=== PATIENT | male | born 1965 | race Caucasian/White ===

== ENCOUNTER 2020-08-16 09:03 | Outpatient (CLI) | payer OTHER, SELFPAY ==
--- NOTE | 2020-08-16 09:30 | US_ITS ---
WS: [id number] ULTRASOUND ABDOMEN LIMITED CLINICAL INFORMATION: R10.811 - Right upper quadrant abdominal tenderness COMPARISON: None. FINDINGS: Technically difficult examination. Liver Size: Normal. Craniocaudal length: 15.2 cm. Echogenicity: Dense consistent with fatty infiltration. Surface nodularity: None. Mass (size and location): None. Bile ducts Intrahepatic ducts: Normal. Common bile duct diameter: 0.6 cm. Gallbladder Normal. Gallstones: None. Gallbladder sludge: None. Gallbladder wall thickening: None. Pericholecystic fluid: None. Sonographic Azevedo sign: Absent. Pancreas Normal as visualized. Right kidney: Normal. Hydronephrosis: None. Size: 10.4 cm x 5.3 cm x 4.8 cm. Abdominal aorta and IVC Visualized portions are normal. Ascites: None. US/US gall bladder 02509 IMPRESSION: 1. Diffuse fatty infiltration of the liver. 2. Gallbladder is normal. 3. No hydronephrosis in right kidney.
== END 2020-08-16 09:04 | disposition home or self-care (01) ==
PROVIDERS: PCP Nurse Practitioner Family; Visit Provider Nurse Practitioner Family
DX: R10.811 Right upper quadrant abdominal tenderness (principal); K76.0 Fatty (change of) liver, not elsewhere classified
CPT/HCPCS: 76705; 80053; 85025; G0103

== ENCOUNTER → 2020-09-04 16:21 | Outpatient (BNVA) | payer OTHER, SELFPAY | PROVIDERS: PCP Nurse Practitioner Family; Referring Provider Nurse Practitioner Family; Visit Provider Internal Medicine | DX: Z20.822 Contact with and (suspected) exposure to COVID-19 (principal); R10.11 Right upper quadrant pain; Z12.11 Encounter for screening for malignant neoplasm of colon; Z01.812 Encounter for preprocedural laboratory examination; K76.0 Fatty (change of) liver, not elsewhere classified | CPT/HCPCS: 87635 ==

== ENCOUNTER 2020-09-07 07:53 | Day surgery (SDC) | payer OTHER, SELFPAY ==
[2020-09-05 13:28] VITALS: BMI 34.2
[2020-09-07 08:22] VITALS: BP 142/97; PULSE 75; RESP 18; TEMP 36.1; O2SAT 98
[2020-09-07] MEDS: sodium chloride 0.9% 1,000 ML 30 ML IV (08:35)
--- NOTE | 2020-09-07 08:39 | ANES.PREANE2 ---
Pre-Anesthetic Assessment Pre-Anesthetic Assessment: Height/Weight: Height 1.83 m Weight 114.305 kg Temp Pulse Resp BP Pulse Ox 97 F L 75 18 142/97 98 09/07/20 08:22 09/07/20 08:22 09/07/20 08:22 09/07/20 08:22 09/07/20 08:22 Preop Diagnosis: abdominal pain Proposed Procedure: Operation Date: 09/07/20 09:00 Proposed Procedures p EGD/colon 97853 [id number] R10.11 Z12.11(Not Applicable) - Tigre Cook MD s Colonoscopy(Not Applicable) - Tigre Cook MD Familial anesthetic complications: None Was Beta Brie taken within 24 hours: N/A Last intake: Intake Last Liquid Date 09/06/20 Last Liquid Time 23:00 Last Solid Date 09/06/20 Last Solid Time 09:00 Social: Social History: Tobacco and No alcohol Exam: Pre-Anes Outpt Exam: alert, oriented x 3, clear to auscultation bilaterally and regular rate & rhythm Airway: Cervical ROM: WNL MP: 3 Dentition: Full CV/HEM: CV/HEM: HTN Hepatic: Comments: fatty liver Anesthetic Plan: ASA status: 2 Anesthesia: MAC Risk of > 500 ml blood loss (7ml/kg in children): No Meds/Allergies Current Medications: Current Medications Generic Name Dose Route Start Last Admin Trade Name Freq PRN Reason Stop Dose Admin Sodium Chloride 1,000 mls @ 30 ml s/hr 09/07/20 08:15 09/07/20 08:35 Sodium Chloride 0.9% IV 30 mls/hr .Q24H STER[place]ING Administration PFSH Anesthesia PFSH: Medical History (Updated 09/04/20 @ 15:37 by Tigre Cook MD) HTN (hypertension) Family History Father CAD (coronary artery disease) Social History (Updated 09/04/20 @ 14:44 by LISA Alegria) Smoking and tobacco status: current every day smoker Alcohol intake: former Marital status: Number of children: 2 service: No History of recent travel: No Current gender identity: Male Data Anesthesia Cardiac Studies: No Data to Display
--- NOTE | 2020-09-07 08:46 | W.PM.OPSUD ---
Surgery/Procedure H&P Update DATE OF PROCEDURE: September 07, 2020 DATE H&P PERFORMED: 09/04/20 PREOP DIAGNOSIS: abdominal pain PLANNED PROCEDURE: Operation Date: 09/07/20 09:00 Proposed Procedures p EGD/colon 01428 [id number] R10.11 Z12.11(Not Applicable) - Tigre Cook MD s Colonoscopy(Not Applicable) - Tigre Cook MD
[2020-09-07 09:28] VITALS: BP 115/78; PULSE 90; RESP 16; TEMP 36.2; O2SAT 96
[2020-09-07 09:42] VITALS: BP 119/97; PULSE 72; RESP 18; TEMP 36.2; O2SAT 97
--- NOTE | 2020-09-07 15:28 | ANE.PACU2 ---
Inpatient post-anesthesia follow up: Airway intact: Yes Vital signs: Temperature 97.1 F Pulse Rate 72 Respiratory Rate 18 Blood Pressure 119/97 Pulse Oximetry 97 Oxygen Delivery Me thod Room Air Oxygen Flow Rate Fraction of Inspir ed Oxygen Hydration adequate: Yes Nausea and vomiting: No Pain level: 1 Mental status: Baseline
[2020-09-10 14:15] LABS: H. Pylori / CLO Test Negative
== END 2020-09-07 09:50 | disposition home or self-care (01) ==
PROVIDERS: PCP Nurse Practitioner Family; Visit Provider Internal Medicine
PROC: 0DJD8ZZ Inspection of Lower Intestinal Tract, Via Natural or Artificial Opening Endoscopic (ICD-10-PCS; CPT 45378; 2020-09-07 09:00)
PROC: 0DJ08ZZ Inspection of Upper Intestinal Tract, Via Natural or Artificial Opening Endoscopic (ICD-10-PCS; CPT 43235; 2020-09-07 09:00)
DX: Z12.11 Encounter for screening for malignant neoplasm of colon (principal); R10.11 Right upper quadrant pain; K52.9 Noninfective gastroenteritis and colitis, unspecified; K57.30 Diverticulosis of large intestine without perforation or abscess without bleeding; D12.4 Benign neoplasm of descending colon; K29.71 Gastritis, unspecified, with bleeding; K25.9 Gastric ulcer, unspecified as acute or chronic, without hemorrhage or perforation; K76.0 Fatty (change of) liver, not elsewhere classified; I10 Essential (primary) hypertension; Z82.49 Family history of ischemic heart disease and other diseases of the circulatory system; F17.210 Nicotine dependence, cigarettes, uncomplicated
CPT/HCPCS: 12345; 43239; 45380; 45385; 87077; 88305; J2704; J7030

== ENCOUNTER → 2021-03-12 08:16 | Outpatient (BNVA) | payer OTHER, SELFPAY | PROVIDERS: PCP Nurse Practitioner Family; Visit Provider Nurse Practitioner Family | DX: E78.5 Hyperlipidemia, unspecified (principal); R53.83 Other fatigue; I10 Essential (primary) hypertension | CPT/HCPCS: 80053; 80061; 85025 ==

== ENCOUNTER 2021-03-25 08:50 | Outpatient (CLI) | payer OTHER, SELFPAY ==
--- NOTE | 2021-03-25 08:00 | USCV_ITS ---
Abelardo Azevedo Age: 55 Gender: M : 1965 Exam Date: 03/25/2021 09:29 Ordering Phys: Aliya Bowser Technologist: Dee Berry [place] [facility] [place]: CVA LT SIDE. RESOLVED Risk Factors: Unknown Previous Vascular Surgery: None Right Brachial BP: / Left Brachial BP: / Right Left Velocity (cm/s) Spectral Plaque Velocity (cm/s) Spectral Plaque Syst/Diast Broadening Syst/Diast Broadening 87.10/ 23.20 Prox CCA 72.60 / 20.50 76.10/ 20.90 Mid CCA 82.90 / 22.20 77.20/ 22.10 Distal CCA 72.60 / 19.70 73.90/ 22.10 Prox ICA 79.20 / 29.50 Hetro 71.70/ 22.10 Mid ICA 71.00 / 24.90 77.20/ 29.80 Distal ICA 66.30 / 22.50 99.20 ECA 116.50 0.89 ICA/CCA 0.96 Antegrade Vertebral Antegrade 30.20/ 9.90 cm/s 23.70/ 11.80 cm/s Tri Subclavian Tri 106.8 59.20 0 CONCLUSIONS Right ICA stenosis <50%. Mild atheromatous plaque right carotid bulb/ICA. Left ICA stenosis <50%. Mild atheromatous plaque left carotid bulb/ICA. Normal antegrade Doppler flow noted in the right vertebral artery. Normal antegrade Doppler flow noted in the left vertebral artery. Pito Helm MD (Electronically Signed) Final Date: 25 March 2021 17:20 S
--- NOTE | 2021-03-25 08:54 | CT_ITS ---
WS: [id number] CT HEAD TECHNIQUE: Noncontrast CT of the head obtained from the skullbase to the vertex. CLINICAL INFORMATION: R20.0 - Anesthesia of skin COMPARISON: CT 5 DLP: 995.[address] scans at [facility] use at least one of these dose optimization techniques: automat ed exposure control; mA and/or kV adjustment per patient size (includes targeted exams where dose is matched to clinical indication); or iterative reconstruction. FINDINGS: No evidence of intracranial hemorrhage or mass effect. Ventricular system and basal cisterns are lee nt. Mild small vessel changes with mild parenchymal volume loss. No extra-axial fluid collections. No evidence of mass or mass effect. Normal reis-white differentiation. Paranasal sinuses and mastoid air cells are well aerated. .Normal visualized soft tissues. CT/CT head wo con* [id number] IMPRESSION: 1. No evidence of intracranial hemorrhage or mass effect. 2. Mild small vessel changes. Mild parenchymal volume loss. 3. No acute intracranial findings. 4. No significant changes since 2019.
== END 2021-03-25 08:51 | disposition home or self-care (01) ==
PROVIDERS: PCP Nurse Practitioner Family; Visit Provider Nurse Practitioner Family
DX: R20.0 Anesthesia of skin (principal); R20.2 Paresthesia of skin; I10 Essential (primary) hypertension; I65.23 Occlusion and stenosis of bilateral carotid arteries
CPT/HCPCS: 70450; 93880

== ENCOUNTER → 2022-01-24 08:14 | Outpatient (BNVA) | payer OTHER, SELFPAY | PROVIDERS: PCP Nurse Practitioner Family; Visit Provider Nurse Practitioner Family | DX: I10 Essential (primary) hypertension (principal) | CPT/HCPCS: 80053; 80061 ==

== ENCOUNTER → 2022-09-29 15:46 | Outpatient (BNVA) | payer OTHER, SELFPAY | PROVIDERS: PCP Nurse Practitioner Family; Visit Provider Nurse Practitioner Family | DX: R60.9 Edema, unspecified (principal); E78.5 Hyperlipidemia, unspecified; R20.2 Paresthesia of skin; Z79.899 Other long term (current) drug therapy | CPT/HCPCS: 80053; 80061; 82607; 83735; 83880 ==

== ENCOUNTER 2022-12-10 07:48 | Outpatient (CLI) | payer OTHER, SELFPAY ==
--- NOTE | 2022-12-10 08:00 | USCV_ITS ---
Abelardo Azevedo Age: 57 Gender: M : 1965 Exam Date: 12/10/2022 08:01 Ordering Phys: Aliya Bowser Technologist: HERVE [place] [facility] [place]: Lt leg swelling HISTORY: Lower extremity swelling. PROCEDURES: Venous duplex imaging was performed in only the left lower extremity. The following venous structures were evaluated: common femoral vein, profunda vein, proximal portion of the greater saphenous vein, superficial femoral vein, and the popliteal vein. In addition, the posterior tibial and peroneal trunk were evaluated. Serial compression, augmentation maneuvers, and spectral Doppler flow evaluation were performed. FINDINGS: No evidence of DVT seen in any vessel visualized at this time. CONCLUSIONS No evidence of left lower extremity DVT. Pito Helm MD (Electronically Signed) Final Date: 10 Dec 2022 13:04 S
== END 2022-12-10 07:49 | disposition home or self-care (01) ==
PROVIDERS: PCP Nurse Practitioner Family; Visit Provider Nurse Practitioner Family
DX: R22.42 Localized swelling, mass and lump, left lower limb (principal)
CPT/HCPCS: 93971

== ENCOUNTER 2022-12-24 15:39 | Observation (INO) | payer OTHER, SELFPAY ==
[2022-12-24] VITALS (9 sets, daily range): BP systolic 98–198; BP diastolic 65–126; PULSE 66–81; RESP 18–24; O2SAT 93–98
--- NOTE | 2022-12-24 16:24 | W.ED.CHESTPA ---
HPI - Chest Pain General: Chief Complaint: Chest Pain Stated Complaint: CP Time Seen by Provider: 12/24/22 16:24 History of Present Illness: Mr. Azevedo is a 57-year-old gentleman with history of smoking, hypertension, obesity presenting to the emergency department for increasing frequency and intensity chest pain. He notes symptoms have been worsening over the past few months. Has left anterior chest pain associated with radiation to the neck, arm, shortness of breath, nausea intermittently. Denies specific known provoking events. No other specific changes in health, exacerbating, or alleviating factors identified. Onset (ago): week(s) Timing of current episode: episodic Prior episodes: Yes Pain location: substernal Pain radiation: left arm and neck Severity: moderate Quality: aching and heaviness Relieving factors: nothing Exacerbating factors: exertion Review of Systems General: Reports: 10 or more systems reviewed and unremarkable except in HPI and below PFSH ED PFSH: Medical History History of colon polyps HTN (hypertension) Family History Father CAD (coronary artery disease) Social History Smoking and tobacco status: current every day smoker Quit status (tobacco): considering quitting Alcohol intake: former Marital status: Number of children: 2 service: No Current gender identity: Male Physical Exam Const: COMMON NORMALS: alert GENERAL APPEARANCE: cooperative and well developed HENMT: COMMON NORMALS: normocephalic and atraumatic HEAD & SCALP: normocephalic and atraumatic Eye: COMMON NORMALS: conjunctivae normal CONJUNCTIVA: Yes conjunctivae normal SCLERA: sclerae normal Neck/C-Spine: COMMON NORMALS: supple GENERAL: Yes trachea midline Resp: COMMON NORMALS: clear to auscultation bilaterally EFFORT & INSPECTION: Yes able to speak in complete sentences AUSCULTATION: clear to auscultation bilaterally Cardio: COMMON NORMALS: regular rate and regular rhythm RATE: regular rate RHYTHM: regular rhythm GI: COMMON NORMALS: Soft to palpation PALPATION: Yes Soft to palpation and No Tenderness to palpation present (GI) Extremity: GENERAL: Yes normal exam except as noted and No edema Neuro: COMMON NORMALS: moves all extremities SENSORIUM/ORIENTATION: Yes alert and No Orientation impaired Psych: COMMON NORMALS: mental status grossly normal and Normal thought process present THOUGHT PROCESS: Normal thought process present Course Vital Signs: Vital signs: Vital Signs Pulse Rate 73 12/25/22 13:09 Respiratory Rate 16 12/25/22 13:09 Blood Pressure 143/79 12/25/22 13:09 Pulse Oximetry 97 12/25/22 13:09 Oxygen Delivery Me thod Room Air 12/25/22 08:25 MDM - Chest Pain Medical Decision Making 57-year-old gentleman presenting with worsening chest pain. Exam as above. EKG demonstrates sinus rhythm with an ossific ST segment abnormalities, no STEMI. Labs without significant hematologic or metabolic abnormalities to explain symptoms. Negative range delta troponin. Chest x-ray with no lobar consolidation or pneumothorax. During ED course patient treated with aspirin. Patient is not low risk by heart score and after discussion will be admitted for further cardiac testing. The results of ED evaluation were discussed with the patient including plan for admission due to requirement for level of care not available if discharged to prevent significant worsening/deterioration. Patient agreeable with plan. Discussed with hospitalist service who was agreeable to admit patient. Medical Records I reviewed the patient's medical records. Lab Data I reviewed the patient's lab results. 12/25/22 03:55 12/25/22 03:55 Radiology Impressions Chest X-Ray 12/24/22 16:25 IMPRESSION: No acute findings. Laboratory Results WBC 6.3 10^3/uL (4.0-10.0) 12/24/22 17:10 RBC 5.72 10^6/uL (4.1-5.3) H 12/24/22 17:10 Hgb 17.1 g/dL (11.7-16.6) H 12/24/22 17:10 Hct 50.0 % (42.0-52.0) 12/24/22 17:10 MCV 87.4 fl (80-94) 12/24/22 17:10 MCH 29.9 pg (28.0-34.0) 12/24/22 17:10 MCHC 34.2 g/dL (30.0-36.0) 12/24/22 17:10 RDW 12.8 % (12.1-15.1) 12/24/22 17:10 Plt Count 216 10^3/cmm (130-400) 12/24/22 17:10 MPV 8.8 fL (7.4-10.4) 12/24/22 17:10 Neut % (Auto) 43.3 % 12/24/22 17:10 Lymph % (Auto) 42.3 % 12/24/22 17:10 [place] % (Auto) 10.9 % 12/24/22 17:10 Eos % (Auto) 1.9 % 12/24/22 17:10 Baso % (Auto) 1.1 % 12/24/22 17:10 Neut # (Auto) 2.75 10^3/uL (1.8-7.7) 12/24/22 17:10 Lymph # (Auto) 2.7 10^3/uL (0.8-4.8) 12/24/22 17:10 [place] # (Auto) 0.7 10^3/uL (0.2-0.9) 12/24/22 17:10 Eos # (Auto) 0.1 10^3/uL (0.0-0.8) 12/24/22 17:10 Baso # (Auto) 0.1 10^3/uL (0.0-0.1) 12/24/22 17:10 Nucleated RBC % (auto) 0 % 12/24/22 17:10 Nucleated RBCs # 0.0 /100WBC 12/24/22 17:10 PT 13.30 SECONDS (12.1-14.9) 12/24/22 17:10 INR 0.99 (0.8-1.2) 12/24/22 17:10 APTT 28.0 SECONDS (23.9-36.7) 12/24/22 17:10 Sodium 134 mmol/L (136-145) L 12/24/22 17:10 Potassium 4.4 mmol/L (3.5-5.1) 12/24/22 17:10 Chloride 101 mmol/L (98-107) 12/24/22 17:10 Carbon Dioxide 25 mmol/L (22-29) 12/24/22 17:10 Anion Gap 12.4 (5-19) 12/24/22 17:10 BUN 15 mg/dL (6-20) 12/24/22 17:10 Creatinine 1.0 mg/dL (0.7-1.2) 12/24/22 17:10 GFR Calculation 76.5 mL/min (90-130) L 12/24/22 17:10 Glucose 84 mg/dL (65-115) 12/24/22 17:10 Estimat Average Glucose 111 12/24/22 17:10 Hemoglobin A1c 5.5 % (4.0-6.0) 12/24/22 17:10 Calculated Osmolality 278 mOsm/kg (285-295) L 12/24/22 17:10 Calcium 9.0 mg/dL (8.5-10.5) 12/24/22 17:10 Total Bilirubin 0.3 mg/dL (0.15-1.2) 12/24/22 17:10 AST 22 U/L (0-40) 12/24/22 17:10 ALT 26 U/L (0-41) 12/24/22 17:10 Alkaline Phosphatase 60 U/L (40-130) 12/24/22 17:10 Troponin T Baseline 9 ng/L (0-15) 12/24/22 17:10 Troponin T 120 Minute 7.80 ng/L (0-15) 12/24/22 19:05 Delta Troponin T -1.2 ABS# (0-10) L 12/24/22 19:05 NT-Pro-B Natriuret Pep 36 pg/mL (0-125) 12/24/22 17:10 Total Protein 6.7 g/dL (6.6-8.7) 12/24/22 17:10 Albumin 4.1 g/dL (3.5-5.2) 12/24/22 17:10 Globulin 2.6 g/dL (1.3-4.6) 12/24/22 17:10 Triglycerides 210 mg/dL (0-150) H 12/24/22 17:10 Cholesterol 162 mg/dL (0-200) 12/24/22 17:10 LDL Cholesterol, Calc 88 mg/dL (50-129) 12/24/22 17:10 HDL Cholesterol 32 mg/dL (60-100) L 12/24/22 17:10 LDL/HDL Ratio 2.75 RATIO (0.00-3.22) 12/24/22 17:10 Cholesterol/HDL Ratio 5.06 mg/dL (1.0-5.00) H 12/24/22 17:10 TSH 1.93 uIU/mL (0.27-4.20) 12/24/22 17:10 Discharge Plan Discharge Patient Disposition: Placed in Observation Admit Provider: Vero Ruiz Clinical Impression: Chest pain Discharge Diet: Cardiac Discharge Activity: Resume usual activity Coding Level of Care Code ED Plaster Machine Operator for Urvashi Haynes
--- NOTE | 2022-12-24 16:25 | ECG_ITS ---
[facility] Test Date: 2022-12-24 Pat Name: Abelardo Azevedo Department: Room: Gender: Male Promotion Producer: : 1965 Requested By: Nahid Garza Order Number: [id number] Barr MD: Neto Mendieta M.D. Measurements Intervals [place] Rate: 66 P: 52 NM: 164 QRS: -29 QRSD: 97 T: 40 QT: 387 QTc: 406 Interpretive Statements SINUS RHYTHM BORDERLINE LEFT AXIS DEVIATION [QRS AXIS < -20] Compared to ECG 12/06/2018 14:10:59 Sinus bradycardia no longer present Electronically Signed On 12-24-2022 22:23:33 CDT by Neto Mendieta M.D. [id number] f
--- NOTE | 2022-12-24 16:25 | XRR_ITS ---
PROCEDURE INFORMATION: Exam: XR Chest Exam date and time: 12/24/2022 4:30 PM Age: 57 years old Clinical indication: Pain; Angina pectoris; Patient HX: Cp, arm numbness TECHNIQUE: Imaging protocol: Radiologic exam of the chest. Views: 1 view. COMPARISON: MR cervical spin wo con* [id number] 03/02/2019 3:25 PM FINDINGS: Lungs: Unremarkable. No consolidation. Pleural spaces: Unremarkable. No pleural effusion. No pneumothorax. Heart/Mediastinum: Unremarkable. No cardiomegaly. Bones/joints: Unremarkable. XR/XR chest 1V portable [id number] IMPRESSION: No acute findings.
[2022-12-24] MEDS: aspirin 81 mg Chew Tablet 324 MG PO (17:10)
[2022-12-24 17:23] LABS: Basophils # 0.1 10^3/uL (0.0-0.1); Basophils % 1.1 %; Eosinophils # 0.1 10^3/uL (0.0-0.8); Eosinophils % 1.9 %; Hemoglobin 17.1 g/dL (11.7-16.6); Lymphocytes # 2.7 10^3/uL (0.8-4.8); Lymphocytes % 42.3 %; Mean Corpuscular HGB Conc 34.2 g/dL (30.0-36.0); Mean Corpuscular Hemoglobin 29.9 pg (28.0-34.0); Mean Corpuscular Volume 87.4 fl (80-94); Mean Platelet Volume 8.8 fL (7.4-10.4); Monocytes # 0.7 10^3/uL (0.2-0.9); Monocytes % 10.9 %; Neutrophils # 2.75 10^3/uL (1.8-7.7); Neutrophils % 43.3 %; Nucleated Red Blood Cells % 0 %; Platelet Count 216 10^3/cmm (130-400); Red Blood Count 5.72 10^6/uL (4.1-5.3); Red Cell Distribution Width 12.8 % (12.1-15.1); White Blood Count 6.3 10^3/uL (4.0-10.0)
[2022-12-24 17:36] LABS: INR 0.99 (0.8-1.2)
[2022-12-24 17:52] LABS: Troponin(5th) Baseline 9 ng/L (0-15)
[2022-12-24 18:02] LABS: Alanine Aminotransferase 26 U/L (0-41); Albumin Level 4.1 g/dL (3.5-5.2); Alkaline Phosphatase 60 U/L (40-130); Anion Gap 12.4 (5-19); Aspartate Amino Transferase 22 U/L (0-40); Blood Urea Nitrogen 15 mg/dL (6-20); Carbon Dioxide 25 mmol/L (22-29); Chloride 101 mmol/L (98-107); Globulin 2.6 g/dL (1.3-4.6); Glomerular Filtration Rate 76.5 mL/min (90-130); Glucose 84 mg/dL (65-115); NT Pro B Type Natriuretic Pept 36 pg/mL (0-125); Osmolality Calculated 278 mOsm/kg (285-295); Potassium 4.4 mmol/L (3.5-5.1); Sodium 134 mmol/L (136-145); Total Bilirubin 0.3 mg/dL (0.15-1.2); Total Protein 6.7 g/dL (6.6-8.7)
--- NOTE | 2022-12-24 18:25 | ECG_ITS ---
[facility] Test Date: 2022-12-24 Pat Name: Abelardo Azevedo Department: Room: Gender: Male Career Placement Specialist: : 1965 Requested By: Nahid Garza Order Number: [id number] Cortney MD: Neto Mendieta M.D. Measurements Intervals [place] Rate: 65 P: 66 [place]: 179 QRS: -28 QRSD: 85 T: 33 QT: 385 QTc: 403 Interpretive Statements SINUS RHYTHM INDETERMINATE AXIS Compared to ECG 12/24/2022 16:08:40 Indeterminate axis now present Electronically Signed On 12-24-2022 22:56:07 CDT by Neto Mendieta M.D. [email or web address]/[id number]
[2022-12-24 19:47] LABS: Troponin 5 2HR Delta -1.2 ABS# (0-10)
--- NOTE | 2022-12-24 19:48 | PM.HP ---
Providers/Chief Complaint Primary Care Provider: CARMELO Hewitt Chief Complaint: CP History of Present Illness Abelardo Azevedo is a 57 year old male with past medical history of hypertension, obesity, active smoker 2 pack/day but now has cut down to 1 pack/day presented to the hospital with complaint of chest pain that has been going on for several weeks however now has increased in intensity and frequency. He states he has a history of coronary artery disease status post CABG in his father. He says every time he gets chest pain it is substernal radiating to the left arm causing nausea and some diaphoresis as well. It is substernal and achy. He states at this point the chest pain has resolved however his arm continues to hurt a little bit. He was given aspirin on arrival to ER. Only past medical history of hypertension and takes lisinopril 40 daily. EKG did not show any gross ischemic changes at this time. He has never had chest pain like this before. At this time denies nausea vomiting abdominal pain chest pain, diarrhea, constipation. States he is otherwise healthy. Did complain of some mild left lower extremity swelling. Medications/Allergies Home Medications Medication Instructions Recorded Confirmed Last Taken Type pantoprazole 40 mg tablet,delayed 40 mg PO DAILY #90 tabs 03/25/22 09/29/22 Unknown Rx release lisinopril 40 mg tablet See Rx Instructions .Route 08/14/22 12/08/22 Unknown Rx .COMPLEX #90 tabs Allergies Allergy/AdvReac Type Severity Reaction Status Date / Time No Known Allergies Allergy Verified 12/08/22 16:16 PFSH Acute PFSH: Medical History History of colon polyps HTN (hypertension) Family History Father CAD (coronary artery disease) Social History Smoking and tobacco status: current every day smoker Alcohol intake: former Marital status: Number of children: 2 service: No Current gender identity: Male Vitals/I&O/Wt Last Vital Signs Pulse 81 12/24/22 19:35 Resp 24 H 12/24/22 19:35 BP 190/126 12/24/22 19:35 Pulse Ox 93 12/24/22 19:35 O2 Del Method Room Air 12/24/22 16:14 Physical Exam Narrative: General: Alert oriented x3, patient seen sitting up in bed appearing comfortable at this time. HEENT: Normocephalic, atraumatic, EOMI, breathing normally. Cardio: Regular rate rhythm, normal S1-S2 Respiratory: Good bilateral air entry, no wheezes no rhonchi appreciated GI: Abdomen soft, nontender, nondistended, bowel sounds + Extremities: Trace edema bilateral lower extremities, left slightly greater than right. Data 12/24/22 17:10 12/24/22 17:10 A&P Assessment and plan (1) Chest pain: (2) PUD (peptic ulcer disease): (3) HTN (hypertension): Plan #Chest pain, sounds typical in nature #Hypertension #GERD? ? Patient states he no longer takes her Protonix and is only on lisinopril daily. ? Check lipid profile, hemoglobin A1c, TSH ? Check troponin series. Baseline troponin negative, 2-hour troponin negative. Delta troponin negative. Awaiting 6-hour troponin ? Serial EKGs ? Explained to the patient symptoms of anginal equivalent and asked him to report symptoms to nurse if any of those happen overnight. ? N.p.o. at midnight today for tentative stress test in a.m. ? Check cardiac echo ? Patient is an active smoker. He is to be offered Nicorette gum, resources to help quit smoking ? He does carry a strong family history with CABG in father. ? Uses [facility] in [place] from pharmacy. ? Does not have a primary care doctor and will need to be set up with one at discharge. ? We will start patient on aspirin 81 daily. Heart rate 55-65. We will hold off on adding a beta-kar at this time. ? Check venous Dopplers bilateral lower extremities ? Consider cardiology consult Full code SCDs, heparin SQ twice daily Attestations Medical Necessity Statement*: Observation admission for stress test in a.m. Coding Level of Care Code G0425 (30 min) Encounter Time (min): 45 Patient seen via Telehealth in the acute care setting (hospital or ED location) by agreement and consent of patient or patient applications sales representative. Telehealth technology used during the visit includes video and audio. This patient encounter is appropriate and reasonable under the circumstances given the patient?s particular presentation at this time. The patient has been advised of the potential risks and limitations of this mode of treatment (including but not limited to the absence of in-person examination at this time) and has agreed to be treated by an off-site physician for this visit. If deemed clinically necessary from this telehealth visit, or if condition or consent for telehealth visit changes, an in-person visit will be arranged. For this encounter, total time for the origination of telehealth care on this date is as shown. Diagnoses Chest pain R07.9 PUD (peptic ulcer disease) K27.9 HTN (hypertension) I10
--- NOTE | 2022-12-24 19:51 | USCV_ITS ---
Abelardo Azevedo Age: 57 Gender: M : 1965 Exam Date: 12/24/2022 21:27 Ordering Phys: Vero Ruiz MD Technologist: CHELSEA [place] [facility] [place] Indication: chest pain, tobaccoism, No history of cardiac intervention per patient. BP: 190 / 126 HR: 63 Rhythm: Sinus Technical Quality: Adequate with OPTISON MEASUREMENTS (Male / Female) Normal Values 2D ECHO LV Diastolic Diameter PLAX 3.9 cm 4.2 - 5.9 / 3.9 - 5.3 cm LV Systolic Diameter PLAX 2.7 cm IVS Diastolic Thickness 1.6 cm 0.6 - 1.0 / 0.6 - 0.9 cm IVS Systolic Thickness 1.9 cm LVPW Diastolic Thickness 1.9 cm 0.6 - 1.0 / 0.6 - 0.9 cm LVPW Systolic Thickness 1.7 cm LVOT Diameter 2.0 cm LV Ejection Fraction 2D Teich 57.0 % LV Ejection Fraction MOD 2C 66.2 % LV Ejection Fraction 2C AL 64.9 % LA Diameter 3.1 cm LA Width 3.5 cm LA Height 5.7 cm RA Width 3.4 cm RA Height 4.8 cm Aorta at Sinotubular Diameter 3.6 cm IVC Diameter 2.3 cm M-MODE Aortic Annulus Diameter 4.0 cm LA Ao Ratio MM 0.8 MV E Point Septal Separation 0.2 cm DOPPLER AV Peak Velocity 130.0 cm/s LVOT Peak Velocity 99.0 cm/s AV Area Cont Eq vti 2.6 cm squared AV Area Cont Eq pk 2.4 cm squared MV Peak Velocity 93.0 cm/s MV Area PHT 2.8 cm squared Mitral E to A Ratio 1.1 MV E' Velocity 54.0 cm/s Mitral E to MV E' Ratio 14.2 Mitral E to LV E' Lateral Ratio 13.9 Mitral E to LV E' Septal Ratio 14.7 TV Peak E Velocity 61.0 cm/s FINDINGS Left Ventricle Normal left ventricular size, systolic function and increased wall thickness, with no regional wall motion abnormalities. Left ventricular ejection fraction is estimated at 70 %. Normal diastolic function. Right Ventricle Normal right ventricular size and systolic function. RVSP could not be calculated due to incomplete tricuspid regurgitation velocity profile. Right Atrium Normal right atrial size. Left Atrium Normal left atrial size. Mitral Valve Structurally normal mitral valve. No mitral valve stenosis. No mitral valve regurgitation. Aortic Valve Probably trileaflet aortic valve. No aortic valve stenosis. No aortic valve regurgitation. Tricuspid Valve Structurally normal tricuspid valve. Trace tricuspid valve regurgitation. Pulmonic Valve Pulmonic valve not well visualized. Pericardium No pericardial effusion. Aorta Normal size aortic root. IVC Normal IVC dimension with >50% respiratory change of the inferior vena cava. CONCLUSIONS 1. Technically difficult study. Optison was used per protocol. 2. Normal left ventricular size, systolic function and increased wall thickness, with no regional wall motion abnormalities. Left ventricular ejection fraction is estimated at 70 %. Normal diastolic function. 3. No prior similar studies to compare. Abbi Lawton MD (Electronically Signed) Final Date: 25 Dec 2022 11:51 S
--- NOTE | 2022-12-24 20:00 | ECG_ITS ---
[facility] Test Date: 2022-12-24 Pat Name: Abelardo Azevedo Department: Room: Gender: Male Assistant Production Editor: : 1965 Requested By: Vero Ruiz Order Number: [id number] Cortney MD: Neto Mendieta M.D. Measurements Intervals [place] Rate: 69 P: 52 [place]: 148 QRS: -25 QRSD: 82 T: 30 QT: 385 QTc: 413 Interpretive Statements SINUS RHYTHM INFERIOR MYOCARDIAL INFARCTION , PROBABLY OLD [40+ ms Q WAVE AND/OR ST/T ABNORMALITY IN II/aVF] Compared to ECG 12/24/2022 18:58:56 Myocardial infarct finding now present Indeterminate axis no longer present Electronically Signed On 12-24-2022 22:55:06 CDT by Neto Mendieta M.D. [id number]
[2022-12-24] MEDS: hyDRALAzine 20 mg/mL INJ 1 mL 10 MG IVP (20:23)
[2022-12-24 20:39] LABS: Chol HDL Ratio 5.06 mg/dL (1.0-5.00); Cholesterol 162 mg/dL (0-200); HDL Cholesterol 32 mg/dL (60-100); LDL Cholesterol Calculated 88 mg/dL (50-129); LDL HDL Ratio 2.75 RATIO (0.00-3.22); Thyroid Stimulating Hormone 1.93 uIU/mL (0.27-4.20); Triglycerides 210 mg/dL (0-150)
[2022-12-24 21:00] LABS: Estmated Average Glucose 111; Hemoglobin A1C 5.5 % (4.0-6.0)
[2022-12-24] MEDS: heparin 5,000 unit/mL INJ 1 mL 5000 UNIT SUBCUT (22:42)
--- NOTE | 2022-12-24 22:59 | ECG_ITS ---
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 Measurements Intervals [place] Rate: 63 P: 69 MI: 173 QRS: -35 QRSD: 89 T: 46 QT: 398 QTc: 409 Interpretive Statements SINUS RHYTHM LEFT AXIS DEVIATION [QRS AXIS < -30] INFERIOR MYOCARDIAL INFARCTION , PROBABLY OLD [40+ ms Q WAVE AND/OR ST/T ABNORMALITY IN II/aVF] Compared to ECG 12/24/2022 20:04:25 Left-axis deviation now present Myocardial infarct finding still present Electronically Signed On 12-25-2022 21:28:57 CDT by Abbi Lawton M.D. [id number]
[2022-12-24 23:25] LABS: Troponin 5 6HR 8.32 ng/L (0-15)
[2022-12-24 23:32] LABS: Troponin 5 6HR Delta -0.68 ng/L (0-12)
[2022-12-25] VITALS (7 sets, daily range): BP systolic 106–149; BP diastolic 66–90; PULSE 60–85; RESP 16–20; O2SAT 97
[2022-12-25 04:06] LABS: Basophils # 0.1 10^3/uL (0.0-0.1); Eosinophils # 0.1 10^3/uL (0.0-0.8); Eosinophils % 1.4 %; Hematocrit 50.2 % (42.0-52.0); Hemoglobin 16.7 g/dL (11.7-16.6); Lymphocytes # 2.6 10^3/uL (0.8-4.8); Lymphocytes % 42.2 %; Mean Corpuscular HGB Conc 33.3 g/dL (30.0-36.0); Mean Corpuscular Hemoglobin 29.2 pg (28.0-34.0); Mean Corpuscular Volume 87.9 fl (80-94); Mean Platelet Volume 8.9 fL (7.4-10.4); Monocytes # 0.8 10^3/uL (0.2-0.9); Monocytes % 12.8 %; Neutrophils # 2.65 10^3/uL (1.8-7.7); Neutrophils % 42.4 %; Nucleated Red Blood Cells % 0 %; Platelet Count 207 10^3/cmm (130-400); Red Blood Count 5.71 10^6/uL (4.1-5.3); Red Cell Distribution Width 12.8 % (12.1-15.1); White Blood Count 6.3 10^3/uL (4.0-10.0)
[2022-12-25 04:23] LABS: Anion Gap 12.8 (5-19); Blood Urea Nitrogen 13 mg/dL (6-20); Calcium 8.7 mg/dL (8.5-10.5); Carbon Dioxide 24 mmol/L (22-29); Chloride 106 mmol/L (98-107); Glomerular Filtration Rate 76.5 mL/min (90-130); Glucose 91 mg/dL (65-115); Osmolality Calculated 286 mOsm/kg (285-295); Potassium 4.8 mmol/L (3.5-5.1); Sodium 138 mmol/L (136-145)
[2022-12-25] MEDS: perflutren protein-a microsphr 0.22 mg/mL SDV 3 mL IV (05:35)
--- NOTE | 2022-12-25 06:24 | ECG_ITS ---
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 Interpretive Statements NAME OF STUDY: LEXISCAN SESTAMIBI STRESS TEST INDICATION: Chest Pain PROCEDURE: At the baseline, the blood pressure was 208/72 mmHg with a heart rate of 88 bpm. The electrocardiogram showed sinus rhythm, axis deviation. possible old inferior infarct. Poor anterior R wave progression. The Lexiscan was infused over a period of 20 seconds. A total of 0.4 milligrams of Lexiscan was infused. The stress phase was continued for a total of 5 minutes. Heart rate at the end of the stress phase was 92 bpm with a blood pressure of 192/70 mm Hg. The EKG at the peak infusion revealed sinus rhythm with no significant ST-T wave changes. Sestamibi was injected 20 seconds after the Lexiscan infusion. Blood pressure at the end of the recovery phase was 105/73 mm Hg with a heart rate of 85 beats per minute. CONCLUSION: 1. No significant EKG changes with the LexiScan infusion. 2. No LexiScan induced chest pain or cardiac arrhythmia. 3. Normal blood pressure and heart rate response. 4. Sestamibi/sestamibi perfusion scan pending; see separate report. Electronically Signed On 12-25-2022 11:18:07 CDT by Abbi Lawton M.D. [id number]
[2022-12-25] MEDS: regadenoson 0.4 Mg/5 ml Syringe IVP (07:13)
[2022-12-25] MEDS: lisinopril 20 mg Tablet 40 MG PO (09:15)
[2022-12-25] MEDS: pantoprazole DR 40 mg Tablet PO (09:18)
[2022-12-25] MEDS: aspirin 81 mg EC Tablet PO (09:18)
[2022-12-25] MEDS: heparin 5,000 unit/mL INJ 1 mL 5000 UNIT SUBCUT (09:19)
--- NOTE | 2022-12-25 11:29 | PM.DCS ---
Discharge Providers Date of Admission: 12/24/22 21:05 Date of Discharge: December 25, 2022 Attending Provider at Admission: Vero Ruiz MD Attending Provider at Discharge: Chun Headley MD Primary Care Provider: CARMELO Hewitt Diagnoses at Discharge Discharge Diagnosis (1) Chest pain: Status: Acute (2) PUD (peptic ulcer disease): Status: Acute (3) HTN (hypertension): Status: Acute Reason for Visit Reason for Visit: CP Hospital Course Hospital Course This is a 47-year-old male with a past medical history of hypertension, who presents to [facility] for chest pain Patient presented to [facility] for chest pain, no significant delta troponin during his hospitalization, EKG no acute ST-T wave changes, no telemetry events, no recurrent chest pain, stress test was low probability. Patient was discharged on aspirin, statin, nitro as needed for chest pain, metoprolol 12.5 twice daily for hypertension, see primary care provider in 1 week for blood pressure check, see cardiology in 2 weeks, if any recurrent chest pain, please go to emergency room. Patient was advised of smoking cessation counseling. Physical Exam Const: COMMON NORMALS: no acute distress and patient oriented x3 Resp: COMMON NORMALS: normal respiratory effort, No retractions, No use of accessory muscles and clear to auscultation bilaterally AUSCULTATION: clear to auscultation bilaterally Cardio: COMMON NORMALS: regular rate, regular rhythm, S1 normal heart sound present and S2 normal heart sound present RATE: regular rate RHYTHM: regular rhythm HEART SOUNDS: S1 normal heart sound present and S2 normal heart sound present GI: COMMON NORMALS: Normal to inspection, nondistended, normoactive bowel sounds present and non-tender Extremity: COMMON NORMALS: no pedal edema Neuro: COMMON NORMALS: patient oriented x3 Psych: COMMON NORMALS: mental status grossly normal Discharge Data Studies Completed and Pending Completed Studies During Hospitalization Category Date Time Status Sestamibi Stress Test Request Routine Exams 12/25/22 06:24 Completed XR chest 1V portable [id number] Stat Exams 12/24/22 16:25 Completed NM janes perf SPECT r/s* [id number] Routine Nuc Med 12/25/22 21:02 Completed Pending at discharge Category Date Time Status Sestamibi Stress Test Request Routine Exams 12/24/22 21:01 Stop Req CV. echo wo/w contrast [id number] Urgent Ultrasound 12/24/22 19:51 Taken Radiology Impressions Chest X-Ray 12/24/22 16:25 IMPRESSION: No acute findings. Laboratory Results WBC 6.3 10^3/uL (4.0-10.0) 12/25/22 03:55 RBC 5.71 10^6/uL (4.1-5.3) H 12/25/22 03:55 Hgb 16.7 g/dL (11.7-16.6) H 12/25/22 03:55 Hct 50.2 % (42.0-52.0) 12/25/22 03:55 MCV 87.9 fl (80-94) 12/25/22 03:55 MCH 29.2 pg (28.0-34.0) 12/25/22 03:55 MCHC 33.3 g/dL (30.0-36.0) 12/25/22 03:55 RDW 12.8 % (12.1-15.1) 12/25/22 03:55 Plt Count 207 10^3/cmm (130-400) 12/25/22 03:55 MPV 8.9 fL (7.4-10.4) 12/25/22 03:55 Neut % (Auto) 42.4 % 12/25/22 03:55 Lymph % (Auto) 42.2 % 12/25/22 03:55 [place] % (Auto) 12.8 % 12/25/22 03:55 Eos % (Auto) 1.4 % 12/25/22 03:55 Baso % (Auto) 1.0 % 12/25/22 03:55 Neut # (Auto) 2.65 10^3/uL (1.8-7.7) 12/25/22 03:55 Lymph # (Auto) 2.6 10^3/uL (0.8-4.8) 12/25/22 03:55 [place] # (Auto) 0.8 10^3/uL (0.2-0.9) 12/25/22 03:55 Eos # (Auto) 0.1 10^3/uL (0.0-0.8) 12/25/22 03:55 Baso # (Auto) 0.1 10^3/uL (0.0-0.1) 12/25/22 03:55 Nucleated RBC % (auto) 0 % 12/25/22 03:55 Nucleated RBCs # 0.0 /100WBC 12/25/22 03:55 PT 13.30 SECONDS (12.1-14.9) 12/24/22 17:10 INR 0.99 (0.8-1.2) 12/24/22 17:10 APTT 28.0 SECONDS (23.9-36.7) 12/24/22 17:10 Sodium 138 mmol/L (136-145) 12/25/22 03:55 Potassium 4.8 mmol/L (3.5-5.1) 12/25/22 03:55 Chloride 106 mmol/L (98-107) 12/25/22 03:55 Carbon Dioxide 24 mmol/L (22-29) 12/25/22 03:55 Anion Gap 12.8 (5-19) 12/25/22 03:55 BUN 13 mg/dL (6-20) 12/25/22 03:55 Creatinine 1.0 mg/dL (0.7-1.2) 12/25/22 03:55 GFR Calculation 76.5 mL/min (90-130) L 12/25/22 03:55 Glucose 91 mg/dL (65-115) 12/25/22 03:55 Estimat Average Glucose 111 12/24/22 17:10 Hemoglobin A1c 5.5 % (4.0-6.0) 12/24/22 17:10 Calculated Osmolality 286 mOsm/kg (285-295) 12/25/22 03:55 Calcium 8.7 mg/dL (8.5-10.5) 12/25/22 03:55 Magnesium 2.0 mg/dL (1.7-2.3) 12/25/22 03:55 Total Bilirubin 0.3 mg/dL (0.15-1.2) 12/24/22 17:10 AST 22 U/L (0-40) 12/24/22 17:10 ALT 26 U/L (0-41) 12/24/22 17:10 Alkaline Phosphatase 60 U/L (40-130) 12/24/22 17:10 Troponin T Baseline 9 ng/L (0-15) 12/24/22 17:10 Troponin T 120 Minute 7.80 ng/L (0-15) 12/24/22 19:05 Delta Troponin T -1.2 ABS# (0-10) L 12/24/22 19:05 Troponin T Hi Sens 6Hr 8.32 ng/L (0-15) 12/24/22 22:57 Troponin T Hi Sens 6Hr Delta -0.68 ng/L (0-12) L 12/24/22 22:57 NT-Pro-B Natriuret Pep 36 pg/mL (0-125) 12/24/22 17:10 Total Protein 6.7 g/dL (6.6-8.7) 12/24/22 17:10 Albumin 4.1 g/dL (3.5-5.2) 12/24/22 17:10 Globulin 2.6 g/dL (1.3-4.6) 12/24/22 17:10 Triglycerides 210 mg/dL (0-150) H 12/24/22 17:10 Cholesterol 162 mg/dL (0-200) 12/24/22 17:10 LDL Cholesterol, Calc 88 mg/dL (50-129) 12/24/22 17:10 HDL Cholesterol 32 mg/dL (60-100) L 12/24/22 17:10 LDL/HDL Ratio 2.75 RATIO (0.00-3.22) 12/24/22 17:10 Cholesterol/HDL Ratio 5.06 mg/dL (1.0-5.00) H 12/24/22 17:10 TSH 1.93 uIU/mL (0.27-4.20) 12/24/22 17:10 Vitals Last Vital Signs Pulse 69 12/25/22 08:25 Resp 16 12/25/22 08:25 BP 145/90 12/25/22 08:00 Pulse Ox 97 12/25/22 08:25 O2 Del Method Room Air 12/25/22 08:25 Discharge Plan Discharge Patient Disposition: Home Condition: Stable Prescriptions: New atorvastatin 40 mg Tablet 40 mg PO BEDTIME 30 Days Qty: 30 0RF metoprolol tartrate 25 mg tablet 12.5 mg PO BID 30 Days Qty: 30 0RF nitroglycerin 0.4 mg tablet, sublingual 0.4 mg sublingual Q5M PRN (Reason: chest pain) 30 Days Qty: 30 0RF Rx Instructions: do not exceed 3 doses per episode pantoprazole 40 mg Tablet,Delayed Release (Dr/Ec) 40 mg PO DAILY 30 Days Qty: 30 0RF aspirin 81 mg Tablet,Delayed Release (Dr/Ec) 81 mg PO DAILY 30 Days Qty: 30 0RF Continued lisinopril 40 mg tablet 40 mg PO DAILY Discharge Orders: Discharge Order (Routine); Ordered 12/25/22 Ordered By: Chun Headley Referrals: Aliya Bowser FNP [Primary Care Provider] - Abbi Lawton MD [Physician] - 2 weeks Discharge Diet: Cardiac Discharge Activity: Resume usual activity Patient Instructions: Opioid Safety Activity Restrictions/Additional Instructions: - Please stop smoking -If you have any recurrent chest pain please go to emergency room -take aspirin, statin as prescribed, use nitro as needed for chest pain -Use beta-kar as prescribed for hypertension -See primary care provider in 1 week for blood pressure check Discharge Attestations Time Spent in Discharge Care*: greater than 30 min Quality Metrics Clinical Quality Measures [ No reported AMI, CVA or VTE this stay] Coding Level of Care Code 21611 Total time (in minutes) for Discharge: 50 Diagnoses Chest pain R07.9 PUD (peptic ulcer disease) K27.9 HTN (hypertension) I10
--- NOTE | 2022-12-25 21:02 | NMCV_ITS ---
NM janes perf SPECT r/s* [id number] Abelardo Azevedo Age: 57 Gender: M : 1965 Exam Date: 12/25/2022 06:30 Ordering Phys: Vero Ruiz MD Technologist: ALLYSON Galaviz Exam Location: [facility] Indications: CHEST PAIN STRESS TEST Please [facility] IMAGE PROTOCOL Rest/Stress 1 Lexiscan Day Radiopharmaceutical Dose (mCi) Administration Site Administered by Rest: Tc-99m 10.9 IV ALLYSON Longo Sestamibi Stress:Tc-99m 33.0 IV ALLYSON Longo Sestamibi Rest: 25-Dec-2022 60 Discovery 630 Stress: 25-Dec-2022 30 Discovery 630 0.4mg Lexiscan. Images obtained in supine and prone position. SPECT RESULTS Technical Quality: Excellent Raw Data Analysis: Normal Image Corrections: No attenuation or motion correction applied Summed Stress Score: 0 Summed Rest Score: 0 Summed Difference Score: 0 PERFUSION FINDINGS SPECT images demonstrate homogeneous tracer distribution throughout the myocardium. FUNCTIONAL RESULTS (calculated via Gated SPECT) Stress Image LV EF (%): 66 Stress EDV (mL):97 TID: 1 Stress ESV (mL):33 FUNCTIONAL FINDINGS: The left ventricle is normal in size. Transient Ischemia Dilatation of 1. The left ventricular ejection fraction is normal with a value of 66%. IMPRESSIONS 1. Myocardial perfusion imaging is normal. 2. Scan indicates low risk for cardiac events. Abbi Lawton MD (Electronically Signed) Final Date: 25 Dec 2022 11:06 S
== END 2022-12-25 13:21 | disposition home or self-care (01) ==
LOC: ER 19:03 → CSU 21:01
PROVIDERS: Admitting Provider Internal Medicine; Emergency Provider Emergency Medicine; PCP Nurse Practitioner Family; Visit Provider Family Medicine
DX: R07.9 Chest pain, unspecified (principal); K27.9 Peptic ulcer, site unspecified, unspecified as acute or chronic, without hemorrhage or perforation; I10 Essential (primary) hypertension; F17.200 Nicotine dependence, unspecified, uncomplicated; Z84.89 Family history of other specified conditions
CPT/HCPCS: 36415; 71045; 78452; 80048; 80053; 80061; 83036; 83735; 83880; 84443; 84484; 85025; 85610; 85730; 93005; 93017; 96372; 96374; 96376; 99285; A9500; C8929; G0378; J0360; J1644; J2785; Q9956

== ENCOUNTER 2023-01-21 06:11 | Outpatient (CLI) | payer OTHER, SELFPAY ==
--- NOTE | 2023-01-21 06:15 | USCV_ITS ---
Abelardo Azevedo Age: 57 Gender: M : 1965 Exam Date: 01/21/2023 06:23 Ordering Phys: Chuck Mcgill M.D ([email or web address]) Technologist: HERVE [place] [facility] [place]: Bilateral Carotid Stenosis Risk Factors: Previous Vascular Surgery: Right Brachial BP: / Left Brachial BP: / Right Left Velocity (cm/s) Spectral Plaque Velocity (cm/s) Spectral Plaque Syst/Diast Broadening Syst/Diast Broadening 86.00/ 23.20 Prox CCA 77.80 / 24.80 86.00/ 19.80 Mid CCA 76.30 / 21.80 63.20/ 19.60 Distal CCA 70.30 / 24.70 56.00/ 22.50 Prox ICA 67.30 / 32.20 50.20/ 20.40 Mid ICA 83.70 / 35.00 58.00/ 26.70 Distal ICA 58.80 / 28.30 90.10 ECA 93.10 0.67 ICA/CCA 1.08 Antegrade Vertebral Antegrade 34.20/ 12.40 cm/s 25.60/ 10.10 cm/s Tri Subclavian Tri 87.20 76.20 CONCLUSIONS Intimal thickening in the common carotid arteries and internal carotid arteries bilaterally. Right ICA stenosis <50%. Mild atheromatous plaque right carotid bulb/ICA. Left ICA stenosis <50%. Mild atheromatous plaque left carotid bulb/ICA. Normal antegrade Doppler flow noted in the right vertebral artery. Normal antegrade Doppler flow noted in the left vertebral artery. Pito Helm MD (Electronically Signed) Final Date: 21 January 2023 11:11 S
== END 2023-01-21 06:12 | disposition home or self-care (01) ==
LOC: RAD 06:11
PROVIDERS: PCP Nurse Practitioner Family; Visit Provider Internal Medicine
DX: I65.23 Occlusion and stenosis of bilateral carotid arteries (principal)
CPT/HCPCS: 93880

== ENCOUNTER 2023-08-31 12:46 | Emergency (ER) | payer OTHER, SELFPAY ==
[2023-08-31 12:56] VITALS: BP 159/86; PULSE 89; RESP 18; TEMP 36.8; O2SAT 96
--- NOTE | 2023-08-31 12:56 | ECG_ITS ---
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 Measurements Intervals [place] Rate: 83 P: 46 LA: 148 QRS: -51 QRSD: 100 T: 55 QT: 379 QTc: 448 Interpretive Statements SINUS RHYTHM PATTERN CONSISTENT WITH PULMONARY DISEASE LEFT ANTERIOR FASCICULAR BLOCK [QRS AXIS <= -45, QR IN I, RS IN II] Compared to ECG 12/24/2022 22:59:37 Left anterior fascicular block now present Left-axis deviation no longer present Myocardial infarct finding no longer present Electronically Signed On 08-31-2023 19:29:32 DOBBY LOOM WEAVER by Neto Mendieta M.D. [id number]
--- NOTE | 2023-08-31 12:56 | XRR_ITS ---
PROCEDURE INFORMATION: Exam: XR Chest Exam date and time: 08/31/2023 1:15 PM Age: 57 years old Clinical indication: Cough; Additional info: Cough/congestion TECHNIQUE: Imaging protocol: Radiologic exam of the chest. Views: 2 views. COMPARISON: CR XR chest 1V portable [id number] 12/24/2022 4:30 PM FINDINGS: Lungs: Suboptimal pulmonary expansion with associated accentuation of bronchovascular markings. Focal area of reticular and micronodularity in the right mid lung zone may represent focal inflammatory change or intercurrent postinflammatory scarring. Pleural spaces: No pleural effusion. Heart/Mediastinum: Cardiomediastinal contours within normal limits. Bones/joints: No significant pathology. XR/XR chest 2V* [id number] IMPRESSION: Focal area of reticulonodular opacity right parahilar region which may represent mild inflammatory change or intercurrent postinflammatory scarring.
--- NOTE | 2023-08-31 13:16 | ED_ITS ---
HPI - Chest Pain 2 General: Chief Complaint: Chest Pain Stated Complaint: chest pain, congestion Time Seen by Provider: 08/31/23 12:56 History of Present Illness: 57-year-old male presents emerged part w ith complaints of substernal chest pain that started this morning while at work. He states that his Review of Systems 2 Card: Reports: chest pain PFS ED 2 PFSH: Medical History History of colon polyps HTN (hypertension) Family History Father CAD (coronary artery disease) Social History Smoking and tobacco/nicotine status: current every day tobacco/nicotine user Quit status (tobacco/nicotine): considering quitting Alcohol intake: former Marital status: Number of children: 2 service: No Current gender identity: Male Physical Exam 2 Narrative: EXAM NARRATIVE: Constitutional: the patient appears well nourished and with normal development. Vital signs reviewed as documented. HENMT: Normocephalic, atraumatic. External ears normal appearance without drainage. Nose without drainage, normal appearance. Mucus membranes moist. Neck is supple, No jugular venous distension, trachea is midline, no appreciable carotid bruits. No lymphadenopathy. No meningeal signs. Flexion, extension and lateral rotation is without pain. Eyes: Pupils are equal, round, reactive to light and accommodation. No scleral icterus. Extra-ocular movement are intact. Thorax is symmetrical and with equal rise and fall with respirations. Resp: Lungs are clear to auscultation. No wheezes, rales, crackles or ronchi at present. Cardio: Regular rate and rhythm. Positive S1, S2. No appreciable murmurs, rubs or gallops. GI: Abdominal exam reveals normal bowel sounds to all quadrants. No organomegaly. No obvious palpable masses noted. No hepatomegally appreciated. Soft, non-tender to palpation. Extremity: Extremities are non-edematous and both femoral and pedal pulses are 2+ and equal bilaterally. Moves all extremities well, sensation in all extremities. Neuro: Alert and oriented x4, person, place, time and situation. Cranial nerves II through XII are grossly intact, there is no focal neurological deficits that I can appreciate at present. Motor strength in the upper and lower extremities are equal and bilateral 5/5. Psych: Cooperative, calm, normal thought process, appropriate judgment. Skin: No lesions, rashes. No gross abnormalities noted. Back: Symmetrical, no obvious deformity, No CVA tenderness Course 2 Vital Signs: Vital signs: Vital Signs Temperature 98.2 F 08/31/23 12:56 Pulse Rate 80 08/31/23 14:26 Respiratory Rate 18 08/31/23 12:56 Blood Pressure 142/84 08/31/23 14:26 Pulse Oximetry 94 08/31/23 14:26 Oxygen Delivery Me thod Room Air 08/31/23 12:56 MDM - Chest Pain Medical Decision Making Physical exam completed and documented, I will obtain serial cardiac enzymes, serial twelve-lead EKGs, chest x-ray, CBC, CMP, urinalysis, B-type natriuretic peptide, PT/PTT/INR, and a chest x-ray. I have reviewed previous and pertinent medical records for assist in obtaining beneficial medical information to improved the care and treatment of the patient. Medical Records I reviewed the patient's medical records. Lab Data I reviewed the patient's lab results. 08/31/23 12:23 08/31/23 12:23 Radiology Impressions Chest X-Ray 08/31/23 12:56 IMPRESSION: Focal area of reticulonodular opacity right parahilar region which may represent mild inflammatory change or intercurrent postinflammatory scarring. Laboratory Results WBC 7.06 10^3/uL (3.29-11.43) 08/31/23 12:23 RBC 5.65 10^6/uL (3.85-5.65) 08/31/23 12:23 Hgb 17.30 g/dL (11.27-16.99) H 08/31/23 12:23 Hct 49.5 % (37-53) 08/31/23 12:23 MCV 87.6 fl (82-101) 08/31/23 12:23 MCH 30.6 pg (27-33) 08/31/23 12:23 MCHC 34.9 g/dL (30-55) 08/31/23 12:23 RDW 13.2 % (12.1-15.1) 08/31/23 12:23 Plt Count 245 10^3/cmm (157-399) 08/31/23 12:23 MPV 9.1 fL (7.4-10.4) 08/31/23 12:23 Neut % (Auto) 32.0 % 08/31/23 12:23 Lymph % (Auto) 52.5 % 08/31/23 12:23 [place] % (Auto) 12.2 % 08/31/23 12:23 Eos % (Auto) 2.0 % 08/31/23 12:23 Baso % (Auto) 1.0 % 08/31/23 12:23 Neut # (Auto) 2.26 10^3/uL (1.8-7.7) 08/31/23 12:23 Lymph # (Auto) 3.7 10^3/uL (0.8-4.8) 08/31/23 12:23 [place] # (Auto) 0.9 10^3/uL (0.2-0.9) 08/31/23 12:23 Eos # (Auto) 0.1 10^3/uL (0.0-0.8) 08/31/23 12:23 Baso # (Auto) 0.1 10^3/uL (0.0-0.1) 08/31/23 12:23 Nucleated RBC % (auto) 0 % 08/31/23 12: Nucleated RBCs # 0.0 /100WBC 08/31/23 12:23 PT 12.20 SECONDS (12.1-14.9) 08/31/23 12:23 INR 0.88 (0.8-1.2) 08/31/23 12:23 APTT 28.9 SECONDS (23.9-36.7) 08/31/23 12:23 Sodium 138 mmol/L (136-145) 08/31/23 12:23 Potassium 4.8 mmol/L (3.5-5.1) 08/31/23 12:23 Chloride 101 mmol/L (98-107) 08/31/23 12:23 Carbon Dioxide 22 mmol/L (22-29) 08/31/23 12:23 Anion Gap 19.8 (5-19) H 08/31/23 12:23 BUN 15 mg/dL (6-20) 08/31/23 12:23 Creatinine 1.0 mg/dL (0.7-1.2) 08/31/23 12:23 GFR Calculation 76.5 mL/min (90-130) L 08/31/23 12:23 Glucose 104 mg/dL (65-115) 08/31/23 12:23 Calculated Osmolality 287 mOsm/kg (285-295) 08/31/23 12:23 Calcium 9.7 mg/dL (8.5-10.5) 08/31/23 12:23 Total Bilirubin 0.4 mg/dL (0.15-1.2) 08/31/23 12:23 AST 22 U/L (0-40) 08/31/23 12:23 ALT 25 U/L (0-41) 08/31/23 12:23 Alkaline Phosphatase 86 U/L (40-130) 08/31/23 12:23 Troponin T Baseline 7 ng/L (0-15) 08/31/23 12:23 Troponin T 120 Minute 10.24 ng/L (0-15) 08/31/23 15:21 Delta Troponin T 3.24 ABS# (0-10) 08/31/23 15:21 NT-Pro-B Natriuret Pep < 36 pg/mL (0-125) 08/31/23 12:23 Total Protein 6.9 g/dL (6.6-8.7) 08/31/23 12:23 Albumin 4.3 g/dL (3.5-5.2) 08/31/23 12:23 Globulin 2.6 g/dL (1.3-4.6) 08/31/23 12:23 All radiology interpretation(s) finalized by discharge Discharge Plan Discharge Patient Disposition: Home Clinical Impression: Atypical chest pain, Hypertension, uncontrolled Condition: Stable Prescriptions: New lisinopril 40 mg tablet 40 mg PO DAILY Qty: 30 0RF No Action atorvastatin 40 mg tablet 40 mg PO BEDTIME 30 Days Qty: 90 1RF albuterol sulfate 90 mcg/actuation HFA aerosol inhaler 2 puff inhalation QID PRN (Reason: shortness of breath or wheezing) Qty: 6.7 0RF pantoprazole 40 mg tablet,delayed release (DR/EC) 40 mg PO DAILY 30 Days Qty: 90 1RF azithromycin [Zithromax Z-Yung] 250 mg tablet See Rx Instructions PO .COMPLEX Qty: 6 0RF Rx Instructions: For 250 mg dose pack: take 500 mg today (day 1), then 250 mg for 4 days (days 2-5) PO bupropion HCl [Wellbutrin SR] 150 mg tablet sustained-release 12 hr 150 mg PO BID Qty: 60 0RF sildenafil [Viagra] 50 mg tablet 50 mg PO DAILY PRN (Reason: sexual activity) Qty: 14 0RF Rx Instructions: administer 30 minutes to 4 hours before activity Nitrostat 0.4 mg Tablet, Sublingual 0.4 mg SUBLINGUAL Q5M PRN (Reason: Chest Pain) Rx Instructions: do not exceed 3 doses per episode ropinirole 1 mg tablet 1 mg PO BEDTIME aspirin 81 mg tablet,delayed release (DR/EC) See Rx Instructions .ROUTE .COMPLEX Rx Instructions: 81mg po in the am and 40.5mg (1/2 tab)po at bedtime lisinopril 40 mg tablet 40 mg PO QAM metoprolol tartrate 25 mg tablet 25 mg PO QPM Discharge Orders: Discharge ED (Routine); Ordered 08/31/23 Ordered By: Elmer Del Valle Referrals: Aliya Bowser FNP [Primary Care Provider] - Discharge Diet: Low Salt Discharge Activity: Resume usual activity Patient Instructions: Opioid Safety, Pain Management Activity Restrictions/Additional Instructions: Activity Restrictions/Additional Instructions: Thank you for choosing [facility] for your healthcare needs today. Please realize that you were seen in the Emergency Department and that we are providing you with an emergency medical screening exam and this may not be a complete and all inclusive of all the testing and or medical work-up that you may need to determine your ailment or severity of your illness. It is very important that you follow-up as instructed with your Primary care provider or Specialist for additional evaluation and to discuss your medical treatment plan. You may return to the Emergency Department should you have concerns or if your condition changes or worsens in any way. Coding Level of Care Code ED Furniture Decals Inspector for Urvashi Haynes
[2023-08-31 13:36] LABS: Basophils # 0.1 10^3/uL (0.0-0.1); Eosinophils # 0.1 10^3/uL (0.0-0.8); Hematocrit 49.5 % (37-53); Lymphocytes # 3.7 10^3/uL (0.8-4.8); Lymphocytes % 52.5 %; Mean Corpuscular HGB Conc 34.9 g/dL (30-55); Mean Corpuscular Hemoglobin 30.6 pg (27-33); Mean Corpuscular Volume 87.6 fl (82-101); Mean Platelet Volume 9.1 fL (7.4-10.4); Monocytes # 0.9 10^3/uL (0.2-0.9); Monocytes % 12.2 %; Neutrophils # 2.26 10^3/uL (1.8-7.7); Nucleated Red Blood Cells % 0 %; Platelet Count 245 10^3/cmm (157-399); Red Blood Count 5.65 10^6/uL (3.85-5.65); Red Cell Distribution Width 13.2 % (12.1-15.1); White Blood Count 7.06 10^3/uL (3.29-11.43)
--- NOTE | 2023-08-31 13:43 | PC.PHAR ---
pt states he takes care of his own medications-pt states he just ran out of his medications today states he wasnt able to take them today-pt states he takes a aspirin 81mg 1 tabs in the am and 1/2 tab qpm when pt stated he took his aspirin that way i asked if he was sure it wasnt his metoprolol tartrate 25mg rx was filled 08/04/23 30d/s 25mg (1 tab) in the am and 12.5mg (1/2 tab) in the qpm pt stated no he takes the metoprolol 25mg qpm-pt states he has been out of his pantoprazole 40mg daily for about 2 weeks-pt states he is out of his lisinopril 40mg daily [facility] last filled 04/22/23 30d/s no refills-lipitor 40mg daily last filled 06/22/23 30d/s no refills-[facility] states the pt picked up his sildenafil 50mg on sat 08/29/23-notes are made in the pharmacy comments
[2023-08-31 13:45] VITALS: BP 139/83; PULSE 88
[2023-08-31] MEDS: nitroglycerin 1 gm/inch oint Pkt 1 INCH TOPICAL (13:45)
[2023-08-31 13:47] LABS: INR 0.88 (0.8-1.2); Partial Thromboplastin Time 28.9 SECONDS (23.9-36.7)
[2023-08-31 13:55] LABS: Troponin(5th) Baseline 7 ng/L (0-15)
[2023-08-31 14:05] LABS: Alanine Aminotransferase 25 U/L (0-41); Albumin Level 4.3 g/dL (3.5-5.2); Alkaline Phosphatase 86 U/L (40-130); Aspartate Amino Transferase 22 U/L (0-40); Blood Urea Nitrogen 15 mg/dL (6-20); Calcium 9.7 mg/dL (8.5-10.5); Carbon Dioxide 22 mmol/L (22-29); Chloride 101 mmol/L (98-107); Globulin 2.6 g/dL (1.3-4.6); Glomerular Filtration Rate 76.5 mL/min (90-130); Glucose 104 mg/dL (65-115); NT Pro B Type Natriuretic Pept < 36 pg/mL (0-125); Osmolality Calculated 287 mOsm/kg (285-295); Sodium 138 mmol/L (136-145); Total Bilirubin 0.4 mg/dL (0.15-1.2); Total Protein 6.9 g/dL (6.6-8.7)
[2023-08-31 14:06] LABS: Anion Gap 19.8 (5-19); Potassium 4.8 mmol/L (3.5-5.1)
--- NOTE | 2023-08-31 14:18 | CT_ITS ---
WS: [id number] CT CHEST ANGIOGRAPHY WITH REFORMATS HISTORY: CXP/dyspnea TECHNIQUE: Contiguous axial images are obtained through the chest during arterial injection of intrav enous contrast. Images are reconstructed to evaluate the pulmonary arteries. MIP imaging also reviewe d. All CT scans at [facility] use at least one of these dose optimization techniques: automat ed exposure control; mA and/or kV adjustment per patient size (includes targeted exams where dose is matched to clinical indication); or iterative reconstruction. CONTRAST: Omnipaque 350; 100 mL IV. DLP: 508.04 mGy.cm COMPARISON: Chest radiograph 08/31/2023 Adequate opacification of the pulmonary arteries. There is no filling defect or pulmonary emboli. Nor mal sized thoracic aorta with mild atherosclerotic plaque. Thoracic aorta is normal size. Poor opacif ication therefore it would be difficult to exclude an aortic dissection. Normal size heart. No perica rdial or pleural effusions. No RIGHT heart strain. Small mediastinal and hilar lymph nodes. Lymph nod e burden at the RIGHT hilum is increased. The largest lymph node is 1.4 cm. Subcarinal lymph node is 1.4 cm. There is mild bronchial wall thickening extending into the proximal RIGHT lower lobe bronchia l tree. There is mild diffuse interstitial thickening throughout both lungs. Tree-in-bud airspace disease. No focal consolidation. No mass or pneumonia. Small hiatal hernia. Mild hepatic steatosis. No adrenal m ass. Moderate increase in thoracic kyphosis. IMPRESSION: 1. No pulmonary embolism. 2. Small reactive RIGHT hilar and subcarinal lymph nodes. 3. Interstitial prominence throughout both lungs with tree-in-bud airspace disease. Likely acute bro nchitis. Consider respiratory bronchiolitis associated with smoking.
[2023-08-31 14:26] VITALS: BP 142/84; PULSE 80; O2SAT 94
[2023-08-31] MEDS: iohexol 350 mg/mL 500 mL Btl (per mL) IV (14:33)
--- NOTE | 2023-08-31 15:16 | ECG_ITS ---
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 Measurements Intervals [address] Rate: 73 P: 59 NV: 168 QRS: -32 QRSD: 98 T: 54 QT: 388 QTc: 430 Interpretive Statements SINUS RHYTHM LEFT AXIS DEVIATION [QRS AXIS < -30] Compared to ECG 08/31/2023 13:13:21 Left-axis deviation now present Left anterior fascicular block no longer present Electronically Signed On 08-31-2023 19:37:20 CHIEF YEOMAN by Neto Mendieta M.D. [id number]
[2023-08-31 15:50] LABS: Troponin 5 2HR 10.24 ng/L (0-15); Troponin 5 2HR Delta 3.24 ABS# (0-10)
== END 2023-08-31 16:11 | disposition home or self-care (01) ==
PROVIDERS: Emergency Provider Internal Medicine; PCP Nurse Practitioner Family
DX: R07.89 Other chest pain (principal); I10 Essential (primary) hypertension; Z79.82 Long term (current) use of aspirin; Z72.0 Tobacco use
CPT/HCPCS: 36415; 71046; 71275; 80053; 83880; 84484; 85025; 85610; 85730; 93005; 99285; Q9967

== ENCOUNTER → 2024-07-06 11:31 | Outpatient (BNVA) | payer OTHER, SELFPAY | PROVIDERS: PCP Nurse Practitioner Family; Visit Provider Nurse Practitioner Family | DX: I10 Essential (primary) hypertension (principal); R53.83 Other fatigue; E78.5 Hyperlipidemia, unspecified | CPT/HCPCS: 80053; 80061; 83036; 84443; 85025 ==

== ENCOUNTER 2024-07-12 08:49 | Outpatient (CLI) | payer OTHER, SELFPAY ==
--- NOTE | 2024-07-12 08:58 | XR_ITS ---
WS: [id number] Exam: XR knee LT 3V* [id number] Date/Time of Exam: 07/12/2024 9:09 AM Reason For Exam: M25.562 - Pain in left knee No fracture. The joints are preserved. No joint effusion. Normal soft tissues. XR/XR knee LT 3V* 00014 IMPRESSION: 1. Normal LEFT knee.
== END 2024-07-12 08:50 | disposition home or self-care (01) ==
PROVIDERS: PCP Nurse Practitioner Family; Visit Provider Nurse Practitioner Family
DX: M25.562 Pain in left knee (principal)
CPT/HCPCS: 73562

== ENCOUNTER → 2024-12-22 08:58 | Outpatient (BNVA) | payer OTHER, SELFPAY | PROVIDERS: PCP Nurse Practitioner Family; Visit Provider Nurse Practitioner Family | DX: I10 Essential (primary) hypertension (principal); E78.5 Hyperlipidemia, unspecified | CPT/HCPCS: 80053; 80061 ==

== ENCOUNTER 2025-03-13 07:17 | Outpatient (CLI) | payer OTHER, SELFPAY ==
[2025-03-13 08:14] LABS: Hematocrit 48.7 % (37-53); Hemoglobin 16.60 g/dL (11.27-16.99); Mean Corpuscular HGB Conc 34.1 g/dL (30-55); Mean Corpuscular Hemoglobin 29.6 pg (27-33); Mean Corpuscular Volume 87.0 fl (82-101); Nucleated Red Blood Cells % 0 %; Platelet Count 211 10^3/cmm (157-399); Red Blood Count 5.60 10^6/uL (3.85-5.65); White Blood Count 5.93 10^3/uL (3.29-11.43)
[2025-03-13 08:47] LABS: Glucose Urine UA Negative (Normal); Nitrate Urine Negative (Negative); Specific Gravity, Urine 1.018 (1.005-1.030)
[2025-03-13 09:06] LABS: Estmated Average Glucose 120; Hemoglobin A1C 5.8 % (4.0-6.0)
[2025-03-13 09:22] LABS: Alanine Aminotransferase 32 U/L (0-41); Albumin Level 4.1 g/dL (3.5-5.2); Alkaline Phosphatase 56 U/L (40-130); Anion Gap 14.2 (5-19); Aspartate Amino Transferase 24 U/L (0-40); Blood Urea Nitrogen 17 mg/dL (8-23); Calcium 9.1 mg/dL (8.5-10.5); Carbon Dioxide 28 mmol/L (22-29); Chloride 104 mmol/L (98-107); Cholesterol 150 mg/dL (0-200); Globulin 2.7 g/dL (1.3-4.6); Glucose 110 mg/dL (65-115); HDL Cholesterol 37 mg/dL (60-100); Osmolality Calculated 296 mOsm/kg (285-295); Potassium 4.2 mmol/L (3.5-5.1); Sodium 142 mmol/L (136-145); Thyroid Stimulating Hormone 1.44 uIU/mL (0.27-4.20); Total Protein 6.8 g/dL (6.6-8.7); Triglycerides 104 mg/dL (0-150)
== END 2025-03-13 07:18 | disposition home or self-care (01) ==
PROVIDERS: PCP Nurse Practitioner Family; Visit Provider Nurse Practitioner Family
DX: I10 Essential (primary) hypertension (principal); E78.5 Hyperlipidemia, unspecified; R42 Dizziness and giddiness; R53.83 Other fatigue; N40.0 Benign prostatic hyperplasia without lower urinary tract symptoms; Z79.899 Other long term (current) drug therapy
CPT/HCPCS: 36415; 80053; 80061; 81001; 82306; 83036; 84443; 85025; G0103

== ENCOUNTER 2025-03-22 10:39 | Outpatient (CLI) | payer OTHER, SELFPAY ==
--- NOTE | 2025-03-22 10:45 | USCV_ITS ---
Abelardo Azevedo Age: 59 Gender: M : 1965 Exam Date: 03/22/2025 11:14 Ordering Phys: JORI Mclaughlin APRN Technologist: Exam Location: [facility] [place] Indication: dizziness Risk Factors: Previous Vascular Surgery: Right Brachial BP: / Left Brachial BP: / Right Left Velocity (cm/s) Spectral Plaque Velocity (cm/s) Spectral Plaque Syst/Diast Broadening Syst/Diast Broadening 94.40/ 21.90 Prox CCA 94.60 / 24.10 99.60/ 24.50 Mid CCA 94.00 / 21.30 84.10/ 23.20 Distal CCA 88.00 / 23.80 52.00/ 17.80 Prox ICA 74.60 / 29.20 68.00/ 23.40 Mid ICA 78.70 / 28.80 65.20/ 23.40 Distal ICA 64.40 / 22.60 132.60 ECA 86.80 0.60 ICA/CCA 0.80 Antegrade Vertebral Antegrade 41.20/ 9.80 cm/s 39.90/ 12.40 cm/s Tri Subclavian Tri 137.5 154.6 0 0 FINDINGS Comparison:. 01/21/23 No significant elevation of systolic or diastolic velocities. Waveforms are normal. Mild carotid plaque. CONCLUSIONS No interval change in stenosis since prior exam. Bilateral ICA stenosis less than 50%. Dr. Sidra Chavez DO (Electronically Signed) Final Date: 22 March 2025 15:31 S
== END 2025-03-22 10:40 | disposition home or self-care (01) ==
PROVIDERS: PCP Nurse Practitioner Family; Visit Provider Nurse Practitioner Family
DX: R42 Dizziness and giddiness (principal); I10 Essential (primary) hypertension; E78.5 Hyperlipidemia, unspecified; R53.83 Other fatigue; N40.0 Benign prostatic hyperplasia without lower urinary tract symptoms; I65.23 Occlusion and stenosis of bilateral carotid arteries
CPT/HCPCS: 93880